=== PATIENT | female | born 1945 | race Caucasian/White ===

== ENCOUNTER → 2016-10-24 | Outpatient (CLI) | payer OTHER ==
--- NOTE | 2016-10-24 15:31 | MA ---
Screening Digital Mammogram With iCAD Analysis Clinical Indications: Routine screening. Technique: Standard cephalocaudal and mediolateral oblique projections are obtained. The examination is processed by the iCAD computer-aided detection system. Comparison: November 2014, July 2013, July 2012, December 2006. Breast density: Type B; Scattered fibroglandular densities. Findings: CAD was reviewed. There are no masses, suspicious calcifications or other signs of malignan cy. There has been no significant change in the appearance of either breast. Impression: Negative mammogram. BI-RADS 1. Recommendation: Routine screening in one year, as long as physical examination is benign. [facility] will send a result letter to the patient. Dense breast parenchyma diminishes mammographic sensitivity. Negative mammography should not preclude additional workup of a clinically suspicious finding. The patient's information is entered into a reminder system with a target due date for her next mammo gram.
== END ==
LOC: CIMAGING 10:27
PROVIDERS: ATTEND Nurse Practitioner
DX: Z12.31 Encounter for screening mammogram for malignant neoplasm of breast (principal)
CPT/HCPCS: G0202

== ENCOUNTER → 2017-10-25 | Outpatient (CLI) | payer OTHER | LOC: CIMAGING 08:10 | PROVIDERS: ATTEND Nurse Practitioner | DX: Z12.31 Encounter for screening mammogram for malignant neoplasm of breast (principal) ==

== ENCOUNTER 2018-01-13 10:18 | Emergency (ER) | payer OTHER ==
[2018-01-13 10:30] VITALS: TEMP 98.2
[2018-01-13] MEDS ORDERED: IPRATROPIUM/ALBUTEROL 3 ML DEYVIAL IH ONE (10:42)
--- NOTE | 2018-01-13 10:54 | EDPHY ---
H & P Time Seen by Provider: 01/13/18 10:25 HPI/ROS: This patient complains of a cough associated with feeling of chest congestion, wheeze "squeaks" in her chest. Her symptoms started 3 days prior to arrival after being exposed to cigar smoke on cruise. She does return from a week-long cruise with her . She feels that the smoke kicked up her allergies. She reports a prior history of reactive airway disease has had similar illnesses in the past. She is also concerned about potential pneumonia because of the dyspnea and a cough. She reports associated sore throat and hoarse voice is also over the past 3 days. No clear exacerbating factors are noted by patient. Her brought her here by private vehicle for further evaluation. ROS: Subjective fevers. No high fevers or chills. No fatigue. HEENT: Hoarse voice. Coryza. Pulmonary: No pleuritic pain. No hemoptysis. No respiratory distress. Cardiovascular: No chest pain or lightheadedness. No calf swelling or pain. GI: No abdominal pain, nausea or vomiting Integumentary: No skin rash 7 point ROS is otherwise negative. Past Medical/Surgical History: Reactive airway disease Hypothyroidism Dyslipidemia Smoking Status: Never smoked Physical Exam: General Appearance: Alert, no distress. Eyes: Pupils equal and round no pallor or injection. ENT, Mouth: Mucous membranes moist. Respiratory: Mild wheezing bilaterally with rales at the left base. Cardiovascular: Regular rate and rhythm. No murmur gallop rub. No JVD. No leg swelling or tenderness. Gastrointestinal: Abdomen is soft and nontender, no masses, bowel sounds normal. Neurological: GCS 15 without focal deficits. Skin: Warm and dry, no rashes. Musculoskeletal: Neck is supple nontender. Extremities are symmetrical, full range of motion. Psychiatric: Mood and affect are normal. DIFFERENTIAL DIAGNOSIS: After history and physical exam differential diagnosis was considered for reactive airway disease with exacerbation, viral bronchitis, pneumonia, laryngitis Constitutional: Initial Vital Signs Temperature (C) 36.8 C 01/13/18 10:25 Heart Rate 88 01/13/18 10:25 Respiratory Rate 16 01/13/18 10:25 Blood Pressure 143/76 H 01/13/18 10:25 O2 Sat (%) 94 01/13/18 10:25 O2 Delivery Mode Room Air Allergies/Adverse Reactions: azithromycin Allergy (Verified 01/13/18 10:31) guaifenesin [From Mucinex] Allergy (Verified 01/13/18 10:31) Sulfa (Sulfonamide Antibiotics) Allergy (Verified 01/13/18 10:31) Home Medications: Medication Instructions Recorded Crestor 03/21/15 Synthroid 03/21/15 Lisa Allergy 03/29/15 Aspirin 81mg (OTC) 03/29/15 Albuterol Hfa Anes Only [Proair 2 puffs IH Q4 PRN #1 mdi 01/13/18 Hfa Icu (*)] Fluticasone Hfa 220 Mcg [Flovent 2 puffs IH DAILY #1 mdi 01/13/18 220 MCG Hfa MDI (*)] Hydroxyzine HCl 01/13/18 Montelukast Sodium 01/13/18 Zantac 01/13/18 Zantac 01/13/18 predniSONE 40 mg PO DAILY #8 tab 01/13/18 MDM/Departure - MDM Imaging Results: Imaging Impressions Chest X-Ray 01/13/18 10:40 Impression: Findings consistent with airways disease are noted with no superimposed pneumonia identified Two view chest x-ray: Mild airway disease. No focal infiltrates appreciated. Imaging: I viewed and interpreted images myself Medications Given: Discontinued Medications Albuterol/Ipratropium (Duoneb) 3 ml IH EDNOW ONE Stop: 01/13/18 10:43 Last Admin: 01/13/18 10:53 Dose: 3 ml ED Course/Re-evaluation: Peak flow was low. Patient is treated with DuoNeb with increased aeration decreased wheeze, subjective improvement Prednisone 40 mg p.o. Discussion: Patient presents with viral laryngitis with RAD exacerbation improving with treatment. Chest x-ray ruled out pneumonia. I counseled patient regarding her diagnosis and treatment plan. Answered all of her questions prior to discharge home. She will go home with prednisone, Flovent, albuterol inhaler with spacer, follow up with primary care physician. She understands need to return emergency department should she develop worsening despite the treatment plan. - Depart Disposition: Home, Routine, Self-Care Clinical Impression: Viral laryngitis Reactive airway disease Qualifiers: Asthma severity: moderate Asthma persistence: persistent Asthma complication type: with acute exacerbation Qualified Code(s): J45.41 - Moderate persistent asthma with (acute) exacerbation Condition: Good Instructions: Laryngitis (ED), Reactive Airways Disease (ED) Additional Instructions: Diagnoses: 1. Laryngitis 2. Reactive airway disease Plan: Humidifier Albuterol inhaler with spacer for cough, wheeze or shortness of breath Flovent steroid inhaler Follow up primary care physician for any ongoing symptoms Return for any significant worsening despite the treatment plan. Prescriptions: Albuterol Hfa Anes Only [Proair Hfa Icu (*)] 2 puffs IH Q4 PRN #1 mdi PRN Reason: Wheezing Fluticasone Hfa 220 Mcg [Flovent 220 MCG Hfa MDI (*)] 2 puffs IH DAILY #1 mdi predniSONE 40 mg PO DAILY #8 tab Referrals: Teagan Hu, [employer] [Primary Care Provider] - As per Instructions
[2018-01-13] MEDS ORDERED: predniSONE 20 MG TAB PO ONE (11:15)
[2018-01-13 11:25] VITALS: BP 146/80; PULSE 98; RESP 18; O2SAT 90
== END 2018-01-13 11:30 | disposition home or self-care (01) ==
LOC: CED 10:18
DX: J45.41 Moderate persistent asthma with (acute) exacerbation (principal); J04.0 Acute laryngitis; Z79.82 Long term (current) use of aspirin
CPT/HCPCS: 71046; 99284; J7512

== ENCOUNTER → 2018-11-25 | Outpatient (CLI) | payer OTHER | LOC: CIMAGING 10:05 | PROVIDERS: ATTEND Nurse Practitioner | DX: Z12.31 Encounter for screening mammogram for malignant neoplasm of breast (principal) ==